=== PATIENT | female | born 1990 | race Caucasian/White ===

== ENCOUNTER → 2016-12-08 | Outpatient (CLI) | payer OTHER ==
[~2016-12-08] MED LIST: COLACE100 MG PO; IBUPROFEN600 MG PO; NORCO 5-325 TA1 EACH PO
== END ==
LOC: LAB 10:56
DX: N91.2 Amenorrhea, unspecified (principal)
CPT/HCPCS: 36415; 84702

== ENCOUNTER → 2016-12-10 | Outpatient (CLI) | payer OTHER | LOC: LAB 12:18 | DX: O20.0 Threatened abortion (principal) | CPT/HCPCS: 84702 ==

== ENCOUNTER → 2020-08-14 | Outpatient (CLI) | payer OTHER ==
[~2020-08-14] MED LIST changes: +COLACE 100MG C100 MG PO; +PRENATAL TABLE1 EAC1 PO; +TRANDATE 100 M100 MG PO
== END ==
LOC: EMI 09:35
DX: G43.009 Migraine without aura, not intractable, without status migrainosus (principal); J32.0 Chronic maxillary sinusitis; J39.2 Other diseases of pharynx
CPT/HCPCS: 70553; A9577